=== PATIENT | male | born 1975 | race Two or more races ===

== ENCOUNTER 2021-10-21 03:06 | Emergency (ER) | payer MEDICAID, OTHER ==
[~2021-10-21] VITALS: Ht 175.3 cm; Wt 113.4 kg
[2021-10-21] MEDS ORDERED: LORAZEPAM 1 MG TABLET ONE (03:25)
[2021-10-21] MEDS ORDERED: LORAZEPAM 1 MG TABLET PO ONE (03:30)
--- NOTE | 2021-10-21 03:35 | NUR ---
PATIENT REFUSING ALL CARE, MADE AWARE.
[2021-10-21 03:42] VITALS: BP 145/98
--- NOTE | 2021-10-21 03:42 | NUR ---
Patient does not wish to proceed with medical care recommended by Dr. Browning. Patient given information related to possible complications, up to and including , which could occur as a result of leaving the hospital at this time. Patient verbalizes understanding of risks involved due to leaving against medical advice. Patient has signed AMA form.
[2021-10-21] MEDS ORDERED: PANTOPRAZOLE 40 MG VIAL ONE (10:44)
[2021-10-21] MEDS ORDERED: FOLIC ACID 1 MG TABLET ONE (10:44)
[2021-10-21] MEDS ORDERED: THIAMINE HCL 100 MG TABLET ONE (10:44)
== END 2021-10-21 03:53 | disposition left against medical advice (07) ==
LOC: EDBD → ER 03:08
DX: R46.1 Bizarre personal appearance (principal); T50.905A Adverse effect of unspecified drugs, medicaments and biological substances, initial encounter; I10 Essential (primary) hypertension; Z60.2 Problems related to living alone; Y92.481 Parking lot as the place of occurrence of the external cause
CPT/HCPCS: C9113

== ENCOUNTER 2022-02-16 05:31 | Emergency (ER) | payer SELFPAY ==
[~2022-02-16] VITALS: Ht 167.6 cm; Wt 115.7 kg
[2022-02-16 05:51] VITALS: BP 154/70
== END 2022-02-16 06:16 | disposition home or self-care (01) ==
LOC: ER 05:34
DX: J21.9 Acute bronchiolitis, unspecified (principal); I10 Essential (primary) hypertension; F17.200 Nicotine dependence, unspecified, uncomplicated; Z88.8 Allergy status to other drugs, medicaments and biological substances; Z60.2 Problems related to living alone